=== PATIENT | female | born 1985 | race Caucasian/White ===

== ENCOUNTER 2017-04-17 18:06 | Inpatient (IN) | payer OTHER ==
[~2017-04-17] VITALS: Ht 165.1 cm; Wt 74.8 kg
--- NOTE | 2017-04-17 18:08 | NUR ---
INFORMED WAITING PERFORMED.
--- NOTE | 2017-04-17 18:26 | NUR ---
PRESENTS TO ED FOR EVALUATION OF RIGHT LOWER ABDOMINAL PAIN THAT STARTED LAST NIGHT AND HAS BEEN WORSENING SINCE. DENIED UROLOGICAL SYMPTOMS. PT REPORTED REBOUND TENDERNESS ON PALPATION. PT REPORTS TO HAVE ONLY ONE KIDNEY, NOT SURE WHICH ONE.
[2017-04-17 18:47] LABS: ABSOLUTE BASOPHIL COUNT 0 /CUMM (0.0-0.2); ABSOLUTE EOSINOPHIL COUNT 0.1 /CUMM (0.0-0.7); ABSOLUTE GRANULOCYTE CT 4.4 /CUMM (1.4-6.5); ABSOLUTE MONOCYTE COUNT 0.5 /CUMM (0.10-0.60); BASOPHIL % 0.2 % (0.0-2.0); GRANULOCYTE % 73.4 % (42.2-75.2); HEMATOCRIT 37.4 % (37-47); MEAN CORPUSCULAR HGB 32.1 PG (27.0-31.0); MEAN CORPUSCULAR VOLUME 94.3 FL (81.0-99.0); PLATELET COUNT 156 /CUMM (130-400); RBC DISTRIBUTION WIDTH 12.5 % (11.5-14.5); RED BLOOD CELL CT 3.97 /CUMM (4.20-5.40); WHITE BLOOD CELL COUNT 5.9 /CUMM (4.8-10.8)
--- NOTE | 2017-04-17 20:29 | NUR ---
PT AMBULATED TO CT SCAN WITH STEADY GAIT
--- NOTE | 2017-04-17 20:32 | NUR ---
URINE TRIO SENT TO LAB BY WILLIAM DC
--- NOTE | 2017-04-17 20:48 | NUR ---
PT MEDICATED WITH 50MG BENADRYL IV PER EMAR PER SARA Cline FOR ALLERGIC REACTION TO IV CONTRAST.
[2017-04-17] MEDS ORDERED: ALL DAY ALLERGY10 MG PO (20:57)
--- NOTE | 2017-04-17 21:00 | CT SCAN REPORT ---
EXAMINATION: CT ABDOMEN AND PELVIS WITH CONTRAST CLINICAL INFORMATION: Appendicitis versus ovarian cyst. Right lower quadrant pain. COMPARISON: None TECHNIQUE: Multidetector volumetric imaging was performed of the abdomen and pelvis before and after the IV administration of 95 mL of Optiray 320 intravenous contrast. Sagittal and coronal reformatted images were obtained on the technologist's workstation. DLP: 330.65 mGy-cm FINDINGS: LUNG BASES: The visualized lung bases are unremarkable. LIVER, GALLBLADDER, AND BILIARY TREE: Small hypodensity in the peripheral mid right lobe measuring 5 mm. This is to small to characterize. Statistically likely small hepatic cyst. No intrahepatic bile duct dilatation. The gallbladder is unremarkable with no evidence of radiopaque gallstones, gallbladder wall thickening, or obvious pericholecystic inflammatory changes. PANCREAS: Unremarkable. SPLEEN: Unremarkable. ADRENAL GLANDS: Unremarkable. KIDNEYS AND URETERS: The kidneys are normal in size, shape, and attenuation. No hydronephrosis, hydroureter, or calculi seen. No perinephric stranding. BLADDER: Unremarkable. GASTROINTESTINAL TRACT: The small and large bowel are unremarkable. The appendix is abnormal. The appendix is dilated to a diameter of 8 mm. There is edema in the surrounding fat. Findings of appendicitis. No abscess or perforation. ABDOMINAL WALL: No significant hernia is appreciated. LYMPH NODES: Normal. VASCULAR: Unremarkable. PELVIC VISCERA: Uterus is anteverted. No adnexal abnormality. OSSEOUS STRUCTURES: Unremarkable. IMPRESSION: Appendicitis.
--- NOTE | 2017-04-17 21:15 | ED GI/GU/ABDOMINAL COMPLAINT ---
History of Present Illness General Chief Complaint: Abdominal Pain/Flank Pain Stated Complaint: ABD. PAIN SINCE LAST NIGHT Source: patient Exam Limitations: no limitations Vital Signs & Intake/Output Vital Signs & Intake/Output ED Intake and Output 04/19 0000 04/18 1200 Intake Total 600 940 Output Total 900 700 Balance -300 240 Intake, IV 0 600 Intake, Oral 600 340 Number 0 Bowel Movements Output, Urine 900 700 Patient 165 lb Weight Allergies Coded Allergies: Iodinated Contrast Media - Oral and (REDNESS SWELLING OF FACE AND EARS, THROAT ITCHY, COUGHING 04/17/17) Reconcile Medications Cetirizine HCl (All Day Allergy) 10 MG TABLET 1 TAB PO PRN ALLERGIES ( Reported) Oxycodone HCl/Acetaminophen (Percocet 5-325 MG Tablet) 5 MG-325 MG TABLET 1-2 TAB PO Q4P PRN PAIN SCALE 4-6 (MODERATE) Triage Note: PRESENTS TO ED FOR EVALUATION OF RIGHT LOWER ABDOMINAL PAIN THAT STARTED LAST NIGHT AND HAS BEEN WORSENING SINCE. DENIED UROLOGICAL SYMPTOMS. PT REPORTED REBOUND TENDERNESS ON PALPATION. PT REPORTS TO HAVE ONLY ONE KIDNEY, NOT SURE WHICH ONE. Triage Nurses Notes Reviewed? yes ? N Is pt currently ? No Onset: Abrupt Duration: day(s): Timing: recent history Quality/Severity: moderate, sharpness, severe No Modifying Factors: none HPI: 31-year-old female comes into emergency room for evaluation of right lower abdominal pains been going on since yesterday getting progressively worse. Decreased appetite today. No fever. No vomiting. No nausea. No changes in bowel movement. She reports that movement hurts her abdomen including the car ride over here with any bumps in the road. Denies any other associated symptoms. (SHANNON CAMEJO) Past History Travel History Traveled to [place] past 21 day No Medical History Any Pertinent Medical History? see below for history Surgical History Surgical History: non-contributory Psychosocial History What is your primary language Somali Tobacco Use: Never used Family History Hx Contributory? No (SHANNON CAMEJO) Review of Systems Review of Systems Constitutional: Reports: no symptoms. EENTM: Reports: no symptoms. Respiratory: Reports: no symptoms. Cardiovascular: Reports: no symptoms. GI: Reports: see HPI. Genitourinary: Reports: see HPI. Musculoskeletal: Reports: no symptoms. Skin: Reports: no symptoms. Neurological/Psychological: Reports: no symptoms. Hematologic/Endocrine: Reports: no symptoms. Immunologic/Allergic: Reports: no symptoms. All Other Systems: Reviewed and Negative (SHANNON CAMEJO) Physical Exam Physical Exam General Appearance: well developed/nourished, no apparent distress, alert, awake Head: atraumatic, normal appearance Eyes: Bilateral: normal appearance, PERRL, EOMI. Ears, Nose, Throat, Mouth: hearing grossly normal, moist mucous membrane Neck: normal inspection, full range of motion Respiratory: normal breath sounds, no respiratory distress Cardiovascular: regular rate/rhythm Gastrointestinal: soft, tenderness (RLQ) Back: normal inspection Extremities: normal range of motion Neurologic/Psych: awake, alert, oriented x 3, normal gait, normal mood/affect Skin: intact, normal color Core Measures ACS in differential dx? No Severe Sepsis Present: No Septic Shock Present: No (SHANNON CAMEJO) Progress Differential Diagnosis: appendicitis, diverticulitis, ectopic , intrauterine , kidney stone, ovarian cyst, ovarian torsion, PID/ cervicitis, perforated viscous, UTI/pyelo Plan of Care: Orders Procedure Date/time Status Regular Diet 04/18 B Active Vital Signs 04/18 0140 Active Teach/Educate 04/18 140 Active Pain Treatment and Response 04/18 0140 Active Nutritional Intake, Monitor 04/18 014 Active Isolation 04/18 0140 Active Intake & Output 04/18 0140 Active Patient Care Conference 04/18 0140 Active Activity/Ambulation 04/18 0140 Active Pathway - chart 04/[address] in observation 04/18 0048 Active Patient Data 04/18 0048 Active Code Status 04/18 0048 Active Discharge Patient 04/18 UNK Active VTE Mechanical Prophylaxis 04/18 UNK Active Vital Signs 04/18 UNK Active Intake & Output 04/18 UNK Active Activity/Ambulation 04/18 UNK Active PATHOLOGY SPECIMEN 04/17 2329 Complete FingerStick- Glucose 04/17 2224 Complete Intake & Output 04/17 2012 Complete URINALYSIS 04/17 194 Complete Add-on Test (ER Only) 04/17 185 Active HUMAN BETA HCG SCREEN 04/17 182 Complete LIPASE 04/17 182 Complete COMPREHENSIVE METABOLIC PANEL 04/17 182 Complete CBC WITHOUT DIFFERENTIAL 04/17 182 Complete AMYLASE 04/17 182 Complete Laboratory Tests 04/17/17 2030: Urine Color YEL, Urine Clarity CLEAR, Urine pH 6.5, Ur Specific [place] <= 1.005 , Urine Protein NEG, Urine Ketones NEG, Urine Nitrite NEG, Urine Bilirubin NEG, Urine Urobilinogen 0.2, Ur Leukocyte Esterase TRACE H, Ur Microscopic SEDIMENT EXAMINED, Urine RBC 1-3, Urine WBC 1-3 H, Ur Epithelial Cells FEW, Urine Hemoglobin SMALL H, Urine Glucose NEG 04/17/17 1829: Anion Gap 9, Estimated GFR > 60, BUN/Creatinine Ratio 18.3, Glucose 91, Calcium 9.2, Total Bilirubin 0.6, AST 16, ALT 40, Alkaline Phosphatase 66, Total Protein 7.0, Albumin 4.4, Globulin 2.6, Albumin/Globulin Ratio 1.7, Amylase 41, Lipase 70, Total Beta HCG NEGATIVE, CBC w Diff NO MAN DIFF REQ, RBC 3.97 L, MCV 94.3, MCH 32.1 H, RDW 12.5, MPV 9.0, Gran % 73.4, Lymphocytes % 16.9 L, Monocytes % 8.5, Eosinophils % 1.0, Basophils % 0.2, Absolute Granulocytes 4.4, Absolute Lymphocytes 1.0 L, Absolute Monocytes 0.5, Absolute Eosinophils 0.1, Absolute Basophils 0, PUBS MCHC 34.0 Diagnostic Imaging: Viewed by Me: CT Scan. Discussed w/RAD: CT Scan. Radiology Impression: EXAM TYPE: CAT - CT ABD & PELVIS W IV CONTRAST EXAMINATION : CT ABDOMEN AND PELVIS WITH CONTRAST CLINICAL INFORMATION: Appendicitis versus ovarian cyst. Right lower quadrant pain. COMPARISON: None TECHNIQUE: Multidetector volumetric imaging was performed of the abdomen and pelvis before and after the IV administration of 95 mL of Optiray 320 intravenous contrast. Sagittal and coronal reformatted images were obtained on the technologist's workstation. DLP: 330.65 mGy-cm FINDINGS: LUNG BASES: The visualized lung bases are unremarkable. LIVER, GALLBLADDER, AND BILIARY TREE: Small hypodensity in the peripheral mid right lobe measuring 5 mm. This is to small to characterize. Statistically likely small hepatic cyst. No intrahepatic bile duct dilatation. The gallbladder is unremarkable with no evidence of radiopaque gallstones, gallbladder wall thickening, or obvious pericholecystic inflammatory changes. PANCREAS: Unremarkable. SPLEEN: Unremarkable. ADRENAL GLANDS: Unremarkable. KIDNEYS AND URETERS: The kidneys are normal in size, shape, and attenuation. No hydronephrosis, hydroureter, or calculi seen. No perinephric stranding. BLADDER: Unremarkable. GASTROINTESTINAL TRACT: The small and large bowel are unremarkable. The appendix is abnormal. The appendix is dilated to a diameter of 8 mm. There is edema in the surrounding fat. Findings of appendicitis. No abscess or perforation. ABDOMINAL WALL: No significant hernia is appreciated. LYMPH NODES: Normal. VASCULAR: Unremarkable. PELVIC VISCERA: Uterus is anteverted. No adnexal abnormality. OSSEOUS STRUCTURES: Unremarkable. IMPRESSION : Appendicitis. DICTATED BY: JORDON NARANJO MD DATE/TIME DICTATED:04/17/172046 STUDENT SUPPORT COUNSELOR:MONIQUE DATE/TIME TRANSCRIBED:04/17/172046 Initial ED EKG: none Comments: Spoke with Dr. Low. They are going to operate on the patient tonight. (SHANNON CAMEJO) Departure Departure Disposition: HOME OR SELF CARE Condition: Stable Clinical Impression Primary Impression: Appendicitis Referrals: CASSANDRA NOGUEIRA,CÉSAR Fleming (PCP/Family) Departure Forms: Customer Survey General Discharge Information Prescriptions: Current Visit Scripts Oxycodone HCl/Acetaminophen (Percocet 5-325 MG Tablet) 1-2 TAB PO Q4P PRN PAIN SCALE 4-6 (MODERATE) #20 TAB OR/GI Note Spoke With: MIKEY NOGUEIRA,CARRIE Guzman ED Treatment Decision: MAISHA REYNA requires urgent operative management or an emergent procedure that cannot be performed in the Emergency Room setting. Transport To: [facility] (SHANNON CAMEJO) PA/PHLEBOTOMIST LAB ASSISTANT Co-Sign Statement Statement: ED Attending supervision documentation- [] I saw and evaluated the patient. I have also reviewed all the pertinent lab results and diagnostic results. I agree with the findings and the plan of care as documented in the PA's/PHLEBOTOMIST LAB ASSISTANT's documentation. [X] I have reviewed the ED Record and agree with the PA's/PHLEBOTOMIST LAB ASSISTANT's documentation. [] Additions or exceptions (if any) to the PAs/PHLEBOTOMIST LAB ASSISTANT's note and plan are summarized below: [] (ZEINAB NOGUEIRA,[place] Contreras)
--- NOTE | 2017-04-17 21:26 | NUR ---
PT MEDICATED WITH 3G UNASYN PER EMAR INFUSING AT 200ML/HR IN 250ML NS.
--- NOTE | 2017-04-17 21:36 | NUR ---
SURGICAL PA CURT IN FOR EVAL
--- NOTE | 2017-04-17 21:44 | NUR ---
PT GIVEN GOWN, TOLD TO TAKE OFF CLOTHING AND SCRUB FOR OR GIVEN TO PT TO COMPLETE.
--- NOTE | 2017-04-17 21:59 | History & Physical Pre-Op ---
LUIS MENCHACA 04/17/172151: General Information and HPI MD Statement: I have seen and personally examined MAISHA KOEHLER and documented this H&P. The patient is a 31 year old F who presented with a patient stated chief complaint of [right lower quadrant abdominal pain]. Source of Information: patient Exam Limitations: no limitations History of Present Illness: Ms. Koehler is 28 through a female with a day and a half history of worsening right lower quadrant abdominal pain she has no significant past medical history she states the pain had worsened overnight today. She denies any nausea or vomiting or change in bladder or bowel habits. CAT scan taken today and emergency room demonstrates appendicitis which is not significant for rupture. She has no other complaints at this time Allergies/Medications Allergies: Coded Allergies: Iodinated Contrast Media - Oral and (REDNESS SWELLING OF FACE AND EARS, THROAT ITCHY, COUGHING 04/17/17) Home Med list Cetirizine HCl (All Day Allergy) 10 MG TABLET 1 TAB PO PRN ALLERGIES ( Reported) Past History Surgical History Pertinent Surgical History: Past Family/Social History Psychosocial History Smoking Status: Light Tobacco Smoker Exam & Diagnostic Data Last 24 Hrs of Vital Signs/I&O Vital Signs Date Time Temp Pulse Resp B/P B/P Pulse O2 O2 Flow FiO2 Mean Ox Delivery Rate 04/17 2013 89 Room Air 04/17 1824 97.7 18 18 134/91 97 Room Air Physical Exam General Appearance Alert, Oriented X3 HEENT PERRLA Cardiovascular Regular Rate, Normal S1, Normal S2 Lungs Clear to Auscultation, Normal Air Movement Abdomen rlq tenderness at mcburney's point, +rovsig's sign, mild peritonitis, + bs Neurological Strength at 5/5 X4 Ext Extremities No Edema Vascular Normal Pulses Last 24 Hrs of Labs/Yuri: Laboratory Tests 04/17/17 2030: Urine Color YEL, Urine Clarity CLEAR, Urine pH 6.5, Ur Specific [place] <= 1.005 , Urine Protein NEG, Urine Ketones NEG, Urine Nitrite NEG, Urine Bilirubin NEG, Urine Urobilinogen 0.2, Ur Leukocyte Esterase TRACE H, Ur Microscopic SEDIMENT EXAMINED, Urine RBC 1-3, Urine WBC 1-3 H, Ur Epithelial Cells FEW, Urine Hemoglobin SMALL H, Urine Glucose NEG 04/17/17 1829: Anion Gap 9, Estimated GFR > 60, BUN/Creatinine Ratio 18.3, Glucose 91, Calcium 9.2, Total Bilirubin 0.6, AST 16, ALT 40, Alkaline Phosphatase 66, Total Protein 7.0, Albumin 4.4, Globulin 2.6, Albumin/Globulin Ratio 1.7, Amylase 41, Lipase 70, Total Beta HCG NEGATIVE, CBC w Diff NO MAN DIFF REQ, RBC 3.97 L, MCV 94.3, MCH 32.1 H, RDW 12.5, MPV 9.0, Gran % 73.4, Lymphocytes % 16.9 L, Monocytes % 8.5, Eosinophils % 1.0, Basophils % 0.2, Absolute Granulocytes 4.4, Absolute Lymphocytes 1.0 L, Absolute Monocytes 0.5, Absolute Eosinophils 0.1, Absolute Basophils 0, PUBS MCHC 34.0 Diagnostic Data Other Results SERVICE DATE: 04/17/17 EXAM TYPE: CAT - CT ABD & PELVIS W IV CONTRAST EXAMINATION: CT ABDOMEN AND PELVIS WITH CONTRAST CLINICAL INFORMATION: Appendicitis versus ovarian cyst. Right lower quadrant pain. COMPARISON: None TECHNIQUE: Multidetector volumetric imaging was performed of the abdomen and pelvis before and after the IV administration of 95 mL of Optiray 320 intravenous contrast. Sagittal and coronal reformatted images were obtained on the technologist's workstation. DLP: 330.65 mGy-cm FINDINGS: LUNG BASES: The visualized lung bases are unremarkable. LIVER, GALLBLADDER, AND BILIARY TREE: Small hypodensity in the peripheral mid right lobe measuring 5 mm. This is to small to characterize. Statistically likely small hepatic cyst. No intrahepatic bile duct dilatation. The gallbladder is unremarkable with no evidence of radiopaque gallstones, gallbladder wall thickening, or obvious pericholecystic inflammatory changes. PANCREAS: Unremarkable. SPLEEN: Unremarkable. ADRENAL GLANDS: Unremarkable. KIDNEYS AND URETERS: The kidneys are normal in size, shape, and attenuation. No hydronephrosis, hydroureter, or calculi seen. No perinephric stranding. BLADDER: Unremarkable. GASTROINTESTINAL TRACT: The small and large bowel are unremarkable. The appendix is abnormal. The appendix is dilated to a diameter of 8 mm. There is edema in the surrounding fat. Findings of appendicitis. No abscess or perforation. ABDOMINAL WALL: No significant hernia is appreciated. LYMPH NODES: Normal. VASCULAR: Unremarkable. PELVIC VISCERA: Uterus is anteverted. No adnexal abnormality. OSSEOUS STRUCTURES: Unremarkable. IMPRESSION: Appendicitis. DICTATED BY: JORDON NARANJO MD DATE/TIME DICTATED:04/17/172046 LEAD INJECTION MOLD TECHNICIAN:MONIQUE DATE/TIME TRANSCRIBED:04/17/172046 Assessment/Plan Assessment/Plan: Ms. Koehler is a 31-year-old female with acute onset of worsening right lower quadrant abdominal pain since yesterday. CAT scan taken today demonstrates acute appendicitis. This case was discussed with Dr. Jensen and feels that the patient should be taken to the operating room tonight for laparoscopic appendectomy. The patient is in agreement and will be taken to the operating room suite. Plan Nothing by mouth IV antibiotics As Ranked By This Provider Problem List: 1. Appendicitis CARRIE JENSEN MD 04/17/17 0698: Attending MD Review Statement Attending Statement Attending MD Statement: examined this patient, discuss w/resident/PA/CURTAIN INSPECTOR, reviewed images Attending Assessment/Plan: 31-year-old woman with classic presentation of periumbilical abdominal pain with progression to right lower quadrant focal peritonitis. Examination is consistent with right lower quadrant peritonitis with Rovsing sign. CT scan confirms a diagnosis. She has received broad-spectrum antibiotics and will proceed with emergent laparoscopic appendectomy. She is informed the risk the operation including bleeding, infection and agrees to proceed.
--- NOTE | 2017-04-17 22:24 | NUR ---
PRE-OP CHECK LIST COMPLETED AND PT IS READY FOR OR, DR JENSEN IN FOR EVAL
--- NOTE | 2017-04-17 22:36 | NUR ---
OR CALLED AND WILL COME FOR PT SHORTLY
--- NOTE | 2017-04-17 22:39 | NUR ---
PT AMBULATED TO THE BATHROOM WITH A STEADY GAIT, VOIDED. PTS SIGNIFICANT OTHER IN RM TAKING PTS [place] RINGS, GLASSES, (1) BELONGINGS BAG AND (1) VALUABLES BAG (PURSE)
--- NOTE | 2017-04-17 22:40 | NUR ---
PTS BEING TRANSPORTED TO THE OR
--- NOTE | 2017-04-17 23:51 | Operative Report ---
Operative/Inv Procedure Report Surgery Date: 04/17/17 Name of Procedure: Laparoscopic appendectomy Pre-Operative Diagnosis: Acute appendicitis Post-Operative Diagnosis: Same Estimated Blood Loss: scant Surgeon/Cloth Shrinking Machine Operator: Shen Low M.D./Ilya RUIZ Anesthesia: general endotracheal tube Specimens: Appendix Operative Indication: See H&P Operative/Procedure Note Note: After consent patient is brought to the operating room and laid supine. General anesthesia was obtained his abdomen was prepped and draped. Skin above the umbilicus was after local anesthesia a curvilinear incision made sharply. We dissected through subcutaneous tissues tissues bluntly and identified the fascia. It was grasped with Scott's and a fasciotomy created sharply. The peritoneum was entered sharply and a blunt Cain port was placed. Pneumoperitoneum was achieved. 2, 5 mm ports were placed in the suprapubic region and left lower quadrant, after local anesthesia was instilled and under direct vision the camera. Patient placed in Trendelenburg and rotated towards the left. The abdomen was explored. There is an inflamed but not perforated appendix in the right lower quadrant. The peritoneum laterally was taken with cautery to allow medial mobilization. The base was grasped with a Cock and a window in the mesentery developed with a [place] dissector. The mesentery was divided with Endo SRINI Almaguer load. The base was divided with Endo SRINI Almaguer load. Appendix was placed in Endo Catch bag and cinched up. The right lower quadrant and pelvis were then irrigated with normal saline. Hemostasis was adequate. Ports then removed and appendix delivered and passed off the field. The fascia was closed 0 Vicryl suture. Skin incisions closed with 4-0 Vicryl. Steri- Strips and sterile dressing applied. Sponge and needle counts are correct CC: CASSANDRA NOGUEIRA,CÉSAR Fleming
--- NOTE | 2017-04-18 00:49 | Admission Core Measures ---
Admission Lab Results I reviewed the following labs: Laboratory Tests 04/17 1570 Chemistry Sodium (137 - 145 mmol/L) 137 Potassium (3.5 - 5.1 mmol/L) 3.9 Chloride (98 - 107 mmol/L) 101 Carbon Dioxide (22 - 30 mmol/L) 27 Anion Gap (5 - 16) 9 BUN (7 - 17 mg/dL) 11 Creatinine (0.5 - 1.0 mg/dL) 0.6 Estimated GFR (>60 ml/min) > 60 BUN/Creatinine Ratio (7 - 25 %) 18.3 Glucose (65 - 99 mg/dL) 91 Calcium (8.4 - 10.2 mg/dL) 9.2 Total Bilirubin (0.2 - 1.3 mg/dL) 0.6 AST (14 - 36 U/L) 16 ALT (9 - 52 U/L) 40 Alkaline Phosphatase (<127 U/L) 66 Total Protein (6.3 - 8.2 g/dL) 7.0 Albumin (3.5 - 5.0 g/dL) 4.4 Globulin (1.9 - 4.2 gm/dL) 2.6 Albumin/Globulin Ratio (1.1 - 2.2 %) 1.7 Amylase (30 - 110 U/L) 41 Lipase (23 - 300 U/L) 70 Total Beta HCG (NEGATIVE) NEGATIVE Hematology CBC w Diff NO MAN DIFF REQ WBC (4.8 - 10.8 /CUMM) 5.9 RBC (4.20 - 5.40 /CUMM) 3.97 L Hgb (12.0 - 16.0 G/DL) 12.7 Hct (37 - 47 %) 37.4 MCV (81.0 - 99.0 FL) 94.3 MCH (27.0 - 31.0 PG) 32.1 H RDW (11.5 - 14.5 %) 12.5 Plt Count (130 - 400 /CUMM) 156 MPV (7.4 - 10.4 FL) 9.0 Gran % (42.2 - 75.2 %) 73.4 Lymphocytes % (20.5 - 51.1 %) 16.9 L Monocytes % (1.7 - 9.3 %) 8.5 Eosinophils % (0 - 5 %) 1.0 Basophils % (0.0 - 2.0 %) 0.2 Absolute Granulocytes (1.4 - 6.5 /CUMM) 4.4 Absolute Lymphocytes (1.2 - 3.4 /CUMM) 1.0 L Absolute Monocytes (0.10 - 0.60 /CUMM) 0.5 Absolute Eosinophils (0.0 - 0.7 /CUMM) 0.1 Absolute Basophils (0.0 - 0.2 /CUMM) 0 PUBS MCHC (33.0 - 37.0 G/DL) 34.0 Urines Urine Color (YEL,AMB,STR) YEL Urine Clarity (CLEAR) CLEAR Urine pH (5.0 - 8.0) 6.5 Ur Specific [place] (1.001 - 1.035) <= 1.005 Urine Protein (NEG,<30 MG/DL) NEG Urine Ketones (NEG) NEG Urine Nitrite (NEG) NEG Urine Bilirubin (NEG) NEG Urine Urobilinogen (0.1 - 1.0 EU/dl) 0.2 Ur Leukocyte Esterase (NEG) TRACE H Ur Microscopic SEDIMENT EXAMINED Urine RBC (0 - 5 /HPF) 1-3 Urine WBC (0 - 2 /HPF) 1-3 H Ur Epithelial Cells (NONE,FEW) FEW Urine Hemoglobin (NEG) SMALL H Urine Glucose (N MG/DL) NEG Admission Meds I reviewed the following Meds: Current Medications Sig/Antonia Start time Last Medication Dose Stop Time Status Admin Dextrose/Sodium 1,000 ML .[id number] 04/18 004 UNVr Chloride (D5W-1/2 Normal Saline 1000ML) Ondansetron HCl 4 MG Q6P PRN 04/18 0045 UNVr (Zofran) Oxycodone/ 1 TAB Q4P PRN 04/18 0045 UNVr Acetaminophen (Percocet) Oxycodone/ 2 TAB Q4P PRN 04/18 0045 UNVr Acetaminophen (Percocet) Acute Coronary Syndrome Inclusion Criteria ACS Diagnosis No Inpatient Core Measures LDL Reminder: If No, please order W/I first 24hr of stay Congestive Heart Failure Inclusion Criteria CHF Diagnosis No Cerebrovascular accident Inclusion Criteria CVA/TIA Diagnosis No Inpatient Core Measures Bedside Swallow Eval Reminder: If BSE failed, place ST order Antithrombotic Reminder: Order Antithrombotic Medication by end of day 2 Antithrombotic Reminder: Document Reason Antithrombotic Not ordered by end of day 2 AFIB/Flutter Reminder: If Present, add to problem list AFIB/Flutter Reminder: Order Anticoag Medication for pts with AFIB/Flutter Atherosclerosis Reminder: If Present, add to problem list LDL Reminder: If No, please order W/I first 24hr of stay PT Order Reminder: If No, please order Venous thromboembolism Inpatient Core Measures VTE Risk Factors: Surgery No Mech VTE prophylaxis d/t No contraindications No VTE Pharm Prophylaxis d/t No contraindications Inclusion Criteria - Per Current guidelines, there needs to be overlap - treatment for the first 5 days of Warfarin therapy. - Parenteral Anticoagulation (IV or SC) needs to be - given along with Warfarin therapy. VTE Diagnosis No VTE Type NONE VTE Confirmed by (Test) NONE Problem List As ranked by this Provider includes Assessment & Plan 1. Appendicitis HOME MEDS Home Med List Cetirizine HCl (All Day Allergy) 10 MG TABLET 1 TAB PO PRN ALLERGIES ( Reported)
--- NOTE | 2017-04-18 01:30 | NUR ---
NURSING NOTE: PT ARRIVED TO FLOOR VIA STRETCHER FROM ICU RECOVERY. PT IS S/P LAP APPY. A&OX3, ROOM AIR, NO DISTRESS NOTED. VSS AT THIS TIME. AFEBRILE. DENIES CP. ABDOEN SOFT, +BOWEL SOUNDS IN ALL 4 QUADS. PT C/O PAIN 4/10 AT SURGICAL SITE. PAIN MEDS GIVEN. PT C/O OF ITCHINESS BUT STATES THAT IT IS STARTING TO GO AWAY AND SHE DOES NOT WANT TO TAKE ANYTHING FOR IT. PT TOLERATING PO. 2 BANDAIDS TO PTS ABDOMEN CDI. IV FLUIDS RUNNING AT 75 ML/HR. INFORMATION PACKET GIVEN. PT SHOWN HOW TO USE CALL LIGHT SYSTEM. WILL CONTINUE TO MONITOR.
[2017-04-18 01:45] VITALS: BP 138/86
[2017-04-18] MEDS ORDERED: PERCOCET 5-3251 EACH PO (06:03)
--- NOTE | 2017-04-18 06:03 | Patient Discharge Instructions ---
Discharge Instructions General Discharge Information You were seen/treated for: ACUTE APPENDICITIS You had these procedures: LAPAROSCOPIC APPENDECTOMY Watch for these problems: TEMP>101.5, INCREASED WOUND DRAINAGE/REDNESS No bath, but you may shower: Yes Other wound care: KEEP WOUNDS CLEAN AND DRY Diet Continue normal diet: Yes Activity Activity Limited to: Weight bear as tolerated Other activity limits: NO STRENUOUIS ACTIVITY Acute Coronary Syndrome Inclusion Criteria At DC or during hospital stay patient has or had the following: ACS DIAGNOSIS No Discharge Core Measures Meds if any: Prescribed or Continued at Discharge Meds if any: NOT Prescribed or Continued at Discharge Congestive Heart Failure Inclusion Criteria At DC or during hospital stay patient has or had the following: CHF DIAGNOSIS No Discharge Core Measures Meds if any: Prescribed or Continued at Discharge Meds if any: NOT Prescribed or Continued at Discharge Cerebrovascular accident Inclusion Criteria At DC or during hospital stay patient has or had the following: CVA/TIA Diagnosis No Discharge Core Measures Meds if any: Prescribed or Continued at Discharge Meds if any: NOT Prescribed or Continued at Discharge Venous thromboembolism Inclusion Criteria VTE Diagnosis No VTE Type NONE VTE Confirmed by (Test) NONE Discharge Core Measures - Per Current guidelines, there needs to be overlap - treatment for the first 5 days of Warfarin therapy. - If discharged on Warfarin prior to 5 days of - overlap therapy, the patient will need to be - assessed for post discharge needs including - *Post discharge parental anticoagulation - *Warfarin and/or parental anticoagulation education - *Follow up date to check INR post discharge At least 5 days overlap therapy as Inpatient No Meds if any: Prescribed or Continued at Discharge Note: Overlap Therapy is Warfarin and Anticoagulant Meds if any: NOT Prescribed or Continued at Discharge
[2017-04-18 06:11] VITALS: BP 118/82
--- NOTE | 2017-04-18 09:28 | PN- General Surgery ---
Subjective Subjective: Patient slept well overnight, no complaints of pain. She has some mild epigastric fullness after eating breakfast this morning. She has been up and ambulatory to the bathroom and urinating without difficulty. Passing small amounts of gas. Objective Vital Signs and I&Os Vital Signs Date Time Temp Pulse Resp B/P B/P Pulse O2 O2 Flow FiO2 Mean Ox Delivery Rate 04/18 0611 97.9 64 20 118/82 96 Room Air 04/18 0145 97.6 73 20 138/86 96 Room Air 04/17 2235 98.1 87 18 132/83 95 Room Air 04/17 2013 89 Room Air 04/17 1824 97.7 18 18 134/91 97 Room Air Intake & Output 04/18 1600 04/18 0800 04/18 0000 04/17 1600 04/17 0800 04/17 0000 Intake Total 940 Output Total 700 Balance 240 Intake, IV 600 Intake, Oral 340 Output, Urine 700 Patient 165 lb 165 lb Weight Weight Reported by Patient Measurement Method Physical Exam: Well-developed well-nourished no apparent distress. HEENT: Atraumatic, extraocular motion intact Neck: Supple, no lymphadenopathy Respiratory: No respiratory distress Abdomen: Dressings clean dry and intact. Mild to moderate tenderness right lower quadrant as expected. Abdomen is soft, no rebound no guarding. Bowel sounds normal Extremities: No edema, no calf pain Neuro: Alert and oriented x3 Psych: Mood affect normal, normal memory normal judgment. Skin: Warm and dry, no rash on exposed skin Assessment/Plan Assessment/Plan Postop day #1 status post laparoscopic appendectomy Stable for discharge home today, Percocet as needed for pain, follow-up in approximately 10 days as outpatient Core Measures/Miscellaneous Venous Thromboembolism VTE Risk Factors: Age > 40, Surgery VTE Contraindications: No Contraindications VTE Diagnosis: No VTE Type: NONE VTE Confirmed by (Test): NONE Beta Kiran Is Beta Kiran a Home Med? No Antibiotics Is Patient on Antibiotics? No
--- NOTE | 2017-04-26 11:32 | Surg Short-stay <48hrs Dis Sum ---
Visit Information Visit Dates Admission Date: 04/18/17 Discharge Date: 04/18/17 Surgical Short Stay DC Summary Admission Diagnosis: APPENDICITIS Final Diagnosis: SAME Procedure(s): LAPAROSCOPIC APPENDECTOMY Summary/Significant Findings: NONE Condition at Discharge: GOOD Discharge Disposition: home or self care Discharge instructions provided to patient/family: Yes Post discharge follow-up plan: 2 WEEKS
== END 2017-04-18 12:25 | DRG 342 ==
LOC: ERH 18:06 → CRI 04-18 → 2NB 04-18 01:36 → ENPENDDIS 04-18 09:27 → 2NB 04-18 12:25
PROVIDERS: Emergency Medicine; ADMIT Surgery
PROC: 0DTJ4ZZ Resection of Appendix, Percutaneous Endoscopic Approach (ICD-10-PCS; principal; 2017-04-18)
PROC: 3E0T3BZ Introduction of Anesthetic Agent into Peripheral Nerves and Plexi, Percutaneous Approach (ICD-10-PCS; 2017-04-18)
DX: K35.80 Unspecified acute appendicitis (principal); Q60.0 Renal agenesis, unilateral; F17.200 Nicotine dependence, unspecified, uncomplicated
CPT/HCPCS: 2NBSP; 74177; 81001; 88304; 96365; 96375; J0131; J1100; J1200; J2250; J2405; J3010; J7042